=== PATIENT | female | born 1945 | race African-American/Black ===

== ENCOUNTER 2016-09-14 10:37 | Outpatient (CLI) | payer MEDICARE, BC ==
--- NOTE | 2016-09-14 16:59 | Diagnostic Imaging Report ---
Indication: Screening mammography. Technique: Bilateral mammography performed with craniocaudal and mediolateral oblique projections. Prior examinations: 02/20/15, 09/06/13 Findings: Breast density Birads type 1: The breasts are mostly composed of adipose tissue. Glandular tissue is less than 25%. Posterior calcifications are noted in the lower inner quadrant of the right breast. These were seen previously but appears slightly more conspicuous on the current examination. As visualized these appear benign. However closer inspection with magnification views is recommended to confirm. No dominant mass, architectural distortion are identified. The axilla, the skin, and nipples are unremarkable. Impression: Birads 0 Further evaluation with a diagnostic mammogram with magnification of the right breast recommended as discussed above.
== END 2016-09-14 12:00 | disposition home or self-care (01) ==
LOC: MAMMO 10:37
DX: Z12.31 Encounter for screening mammogram for malignant neoplasm of breast (principal)
CPT/HCPCS: 77067

== ENCOUNTER 2016-09-21 10:50 | Outpatient (CLI) | payer MEDICARE, BC ==
--- NOTE | 2016-09-22 16:36 | Diagnostic Imaging Report ---
Indication: Diagnostic mammogram. Abnormal screening mammogram. Microcalcifications. Technique: Unilateral magnification right mammography performed with craniocaudal , lateral and mediolateral oblique projections. Prior examinations: 09/14/16 Findings: Breast composition type A: The breasts are mostly composed of adipose tissue.. In the lower inner quadrant of the right breast there is a clustered focus of microcalcification. Upon further examination with magnification, the cluster appears benign. There is no interval change. Impression: No mammographic evidence for malignancy. Benign calcifications noted. BI-RADS 2
== END 2016-09-21 12:50 | disposition home or self-care (01) ==
LOC: MAMMO 10:50
DX: N63 Unspecified lump in breast (principal)